=== PATIENT | female | born 1970 | race Caucasian/White ===

== ENCOUNTER 2017-02-19 13:14 | Emergency (ER) | payer BC ==
[~2017-02-19] VITALS: Ht 167.6 cm; Wt 56.8 kg
[2017-02-19] MEDS ORDERED: IRON325 M2 PO (13:19)
[2017-02-19 13:46] LABS: HEMATOCRIT 38.7 % (37.0-47.0); MEAN CELL VOLUME 83 fl (80.0-100.0); MEAN CORPUSCULAR HEMOGLOBIN 28 pg (27.0-31.0); MEAN CORPUSCULAR HGB CONC 34 g/dl (33.0-37.0); MEAN PLATELET VOLUME 9.2 fl (7.4-10.4); PLATELET COUNT 96 K/mm3 (130-400); RED BLOOD COUNT 4.66 M/mm3 (4.10-5.30); REDCELL DISTRIBUTION WIDTH-CV 15.7 % (11.5-14.5); WHITE BLOOD COUNT 4.4 K/mm3 (4.8-10.8)
[2017-02-19 13:49] LABS: ADD PATHOLOGY DIFF REVIEW NO
[2017-02-19 13:58] LABS: CALCIUM 9.4 mg/dL (8.4-10.2); CREATININE, serum 0.68 mg/dL (0.52-1.25); POTASSIUM 3.9 mmol/L (3.4-5.0)
[2017-02-19 14:50] LABS: BAND 10 % (0-10); EOSINOPHIL 2 % (0-4); NEUTROPHILS 67 % (42.0-75.2); TOTAL CELLS COUNTED 100
[2017-02-19 14:51] LABS: PLATELET ESTIMATE NORMAL (NORMAL)
[2017-02-19 19:45] VITALS: BP 134/98; PULSE 79; TEMP 99
== END 2017-02-19 19:45 | disposition home or self-care (01) ==
LOC: COL.ER 13:14
PROVIDERS: Nurse Practitioner
DX: O03.6 Delayed or excessive hemorrhage following complete or unspecified spontaneous abortion (principal); O03.89 Complete or unspecified spontaneous abortion with other complications; O9A.23 Injury, poisoning and certain other consequences of external causes complicating the puerperium; K52.1 Toxic gastroenteritis and colitis; R11.10 Vomiting, unspecified; T48.0X5A Adverse effect of oxytocic drugs, initial encounter; Y92.538 Other ambulatory health services establishments as the place of occurrence of the external cause
CPT/HCPCS: J2405; J7030

== ENCOUNTER → 2018-08-08 | Outpatient (CLI) | payer BC ==
[2005-03-31 07:30] VITALS: PULSE 60; TEMP 97.7
[~2018-08-08] MED LIST: IRON325 M2 PO
== END ==
LOC: MC.RAD 14:40
DX: Z12.31 Encounter for screening mammogram for malignant neoplasm of breast (principal)

== ENCOUNTER → 2019-09-07 | Outpatient (CLI) | payer BC ==
[2005-03-31 07:30] VITALS: PULSE 60; TEMP 97.7
== END ==
LOC: MC.RAD 08:30
DX: Z12.31 Encounter for screening mammogram for malignant neoplasm of breast (principal)

== ENCOUNTER → 2020-09-13 | Outpatient (CLI) | payer BC ==
[2005-03-31 07:30] VITALS: PULSE 60; TEMP 97.7
== END ==
LOC: MC.RAD 07:45
DX: Z12.31 Encounter for screening mammogram for malignant neoplasm of breast (principal)

== ENCOUNTER → 2022-01-14 | Outpatient (CLI) | payer OTHER ==
[2005-03-31 07:30] VITALS: PULSE 60; TEMP 97.7
== END ==
LOC: MC.RAD 14:29
DX: Z12.31 Encounter for screening mammogram for malignant neoplasm of breast (principal)

== ENCOUNTER → 2023-01-15 | Outpatient (CLI) | payer OTHER ==
[2005-03-31 07:30] VITALS: TEMP 97.7
== END ==
LOC: MC.RAD 09:10
DX: Z12.31 Encounter for screening mammogram for malignant neoplasm of breast (principal)